=== PATIENT | female | born 1965 | race Caucasian/White ===

== ENCOUNTER 2023-11-26 16:37 | Outpatient (OUT) | payer OTHER, SELFPAY ==
--- NOTE | 2023-11-26 | MM_ITS ---
Patient Name: CLAUDIA SOMMERS MR#: [id number] : 1965 Exam Date: 11/26/2023 Ordering Doctor: DR JO CAPPS RADIOLOGY REPORT PROCEDURE: MM TOMOSYNTHESIS SCREENING BI COMPARISON: MG MAMM SCREEN 3D CARLOS CAD, 11/22/2022. MG MAMM SCREEN 3D CARLOS CAD, 11/21/2021. INDICATIONS: Screening for malignant neoplasm Calculator Name NCI Breast Cancer Risk Assessment Tool 5 Year Breast Cancer Risk 1.50% Lifetime Breast Cancer Risk 8.30% Personal Breast Cancer No Personal Ovarian Cancer No Treatments None Family Cancers Grandmother-maternal with colon cancer at age 67. LOCATION: The [facility] BREAST COMPOSITION: Heterogeneously dense,which may obscure small masses. FINDINGS: DIAGNOSTIC CATEGORY 1--NEGATIVE. NO CHANGE FROM COMPARISON ASSESSMENT. Scattered benign-appearing calcifications are present. Scattered benign-appearing lymph nodes are present. RIGHT BREAST: No significant suspicious finding. LEFT BREAST: No significant suspicious finding. Area of focal asymmetry upper inner quadrant, mid breast, stable RECOMMENDATIONS: ROUTINE MAMMOGRAM AND CLINICAL EVALUATION IN 12 MONTHS. PLEASE NOTE: A NORMAL MAMMOGRAM DOES NOT EXCLUDE THE POSSIBILITY OF BREAST CANCER. A CLINICALLY SUSPICIOUS PALPABLE LUMP SHOULD BE BIOPSIED. Dictated by: Best Angeles MD on 11/27/2023 at 09:23 Approved by: Best Angeles MD on 11/27/2023 at 09:25
== END 2023-11-26 16:38 | disposition home or self-care (01) ==
PROVIDERS: PCP Internal Medicine; Visit Provider Specialist
DX: Z12.31 Encounter for screening mammogram for malignant neoplasm of breast (principal); Z80.0 Family history of malignant neoplasm of digestive organs
CPT/HCPCS: 77063; 77067

== ENCOUNTER 2023-12-26 12:51 | Outpatient (OUT) | payer OTHER, SELFPAY ==
[2023-12-26 13:02] LABS: Hemoglobin 13.4 g/dL (12.0-16.0)
[2023-12-26] MEDS: ALBUTEROL SULFATE 2.5 MG/3 ML VIAL NEB IH (13:45)
--- NOTE | 2023-12-26 13:50 | RT_ITS ---
The [facility] Test Date: 2023-12-26 Pat Name: CLAUDIA SOMMERS Department: Room: - Gender: Female [employer]: Eliezer Ochoa RRT : 1965 Requested By: [id number] Order Number: [id number] Reading MD: Afshin Sheppard Interpretive Statements Pulmonary function testing was completed according to ATS criteria. Findings were considered accurate and reproducible. Both pre- and post-bronchodilator values utilized for spirometry. Spirometry (based on pre-bronchodilator values): -FEV1/FVC: Low normal @ 72% -FEV1: Low normal @ 80% -FVC: Normal @ 86% -NQM14-47%: Reduced @ 59% -There is a positive bronchodilator resposne in CSN44-80%, but diagnostic and clinical significance is unclear. Lung volumes by plethysmography (based on pre-bronchodilator values): -RV: Increased @ 139% -TLC: Normal @ 113% Diffusion capacity: -DLCO: Normal @ 93% when corrected for Hb 13.4g/dL Flow-volume loop: -Mild obstructive pattern Impressions: -Spirometry trends towards mild-moderate obstruction. An elevated RV suggests air trapping. The diffusion capacity is normal. Overall study suggests an underlying obstructive process, such as asthma. Clinical correlation required. Electronically Signed On 12-31-2023 12:37:40 EDT by Afshin Sheppard
== END 2023-12-26 12:52 | disposition home or self-care (01) ==
LOC: CARD 12:52
PROVIDERS: PCP Internal Medicine
DX: R05.3 Chronic cough (principal)
CPT/HCPCS: 36415; 85018; 94060; 94726; 94729

== ENCOUNTER 2024-11-26 16:38 | Outpatient (OUT) | payer BC, SELFPAY ==
--- NOTE | 2024-11-26 16:40 | MM_ITS ---
Patient Name: CLAUDIA SOMMERS MR#: [id number] : 1965 Exam Date: 11/26/2024 Ordering Doctor: Non-Staff Physician RADIOLOGY REPORT PROCEDURE: MM TOMOSYNTHESIS SCREENING BI COMPARISON: MM TOMOSYNTHESIS SCREENING BI, 11/26/2023. MG MAMM SCREEN 3D CARLOS CAD, 11/22/2022. MG MAMM SCREEN 3D CARLOS CAD, 11/21/2021. MG MAMM CARLOS SCRN W CAD DIG, 03/11/2013. INDICATIONS: Screening Calculator Name NCI Breast Cancer Risk Assessment Tool 5 Year Breast Cancer Risk 1.60% Lifetime Breast Cancer Risk 8.10% Personal Breast Cancer No Personal Ovarian Cancer No Treatments None Family Cancers Grandmother-maternal with colon cancer at age 67. LOCATION: [facility] BREAST COMPOSITION: There are scattered areas of fibroglandular density. FINDINGS: DIAGNOSTIC CATEGORY 1--NEGATIVE. LEFT BREAST: No significant suspicious finding. RIGHT BREAST: No significant suspicious finding. RECOMMENDATIONS: ROUTINE MAMMOGRAM AND CLINICAL EVALUATION IN 12 MONTHS. PLEASE NOTE: A NORMAL MAMMOGRAM DOES NOT EXCLUDE THE POSSIBILITY OF BREAST CANCER. A CLINICALLY SUSPICIOUS PALPABLE LUMP SHOULD BE BIOPSIED. Dictated by: Brando Pringle DO on 11/27/2024 at 15:38 Approved by: Brando Pringle DO on 11/27/2024 at 15:45
--- OUTSIDE RECORDS SUMMARY | 2024-11-26 16:58 | XMS_ITS | CCD ---
Author Organization [facility] Care Team Providers Care Ply Splicer Name Role Phone PHYSICIAN, DEFAULT Unavailable Unavailable PHYSICIAN, DEFAULT Unavailable Unavailable ARELY, ABDULAZIM Unavailable Unavailable ARELY, ABDULAZIM Unavailable Unavailable NOMI BARAHONA Unavailable Unavailable YON DICKINSON Unavailable Unavailable [place] Unavailable Unavailable ARELY, ABDULAZIM Unavailable Unavailable YENIFER TELLO Unavailable Unavailable [place] Unavailable Unavailable JEFRY, DR OSORIO Admitting Unavailable JEFRY, DR OSORIO Attending Unavailable DR NOMI BARAHONA Primary Care Unavailable WEST, DR VITA Obando Consulting Unavailable JEFRY, DR OSORIO Consulting Unavailable Pablo Nielsen Unavailable JACEY Barahona Primary Care Provider [phone] MD Radhames Brush Attending Provider [phone] Radhames Brush Attending Unavailable Radhames Brush Admitting Unavailable Nomi Barahona Primary Care Unavailable Nomi Barahona MD Primary Care Provider [phone] CAMPBELL STEPHENS Attending Unavailable RADHAMES BRUSH Referring Unavailable NOMI BARAHONA Attending Unavailable JO CAPPS Attending Unavailable Unavailable Primary Care Provider UnavailHARRIET Castaneda Attending Unavailable Allergies Allergy Classification Reported Allergen(s) Allergy Type Date of Onset Reaction(s) Facility (2 sources) nitrofurantoin; Translations: [MACROBID] Drug Allergy 12-17-19 18 [facility] (2 sources) penicillin; Translations: [PENICILLIN] Drug Allergy 12-17-19 18 [facility] (1 source) No Known Allergies; Translations: [No Known Allergies] Propensity to adverse reactions (disorder) [facility] (3 sources) NITROFURANTOIN, MACROCRYSTALS / Nitrofurantoin, Monohydrate Drug Allergy Unknown Zachary Prell Other (3 sources) penicillAMINE Drug Allergy Unknown Zachary Prell Other (6 sources) Nitrofurantoin; Translations: [nitrofurantoin] Drug Allergy 06-22-19 97 Unknown, Shortness of breath [facility] (6 sources) Penicillins; Translations: [Penicillins] Allergy to substance 09-15-19 69 Hives [facility] Medications Current Medications Medication Drug Class(es) Dates Sig (Normalized) Sig (Original) 8 hr acetaminophen 650 mg extended release oral tablet (1 source) Start: 10-13-2020 Acetaminophen (Tylenol 8 Hour) 650 mg Tablet Extended Release Active 1300 MG PO Q12H October 13, 2020 12:00am Ascorbic Acid (2 sources) Vitamin C Vitamin C Active Calcium Carbonate (2 sources) Tums Active clobetasol propionate 0.0005 mg/mg topical ointment (4 sources) Corticosteroid Start: 06-27-2022 clobetasol (Temovate) 0.05 % ointment APPLY TO AFFECTED AREAS IN GROIN AND TRUNK TWICE A DAY WHEN FLARED 06/27/2022 Active Fish Oil-Jasper-3 Fatty Acids (FISH OIL) 300-500 mg cap (1 source) Fish Oil-Jasper-3 Fatty Acids (FISH OIL) 300-500 mg cap Take by mouth. Active Fish Oils (2 sources) Fish Oil Active Multivitamin-[place] ls-Lutein (Multivitamin 50 Plus) Tablet (1 source) Start: 08-08-2018 Multivitamin-[place] als-Lutein (Multivitamin 50 Plus) Tablet Active 1 TAB PO Every morning August 08, 2018 12:00am [place] 0-Mfw-Jto-Fish Oil (Fish Oil) 1,000 mg (120 mg-180 mg) Capsule (1 source) Start: 08-08-2018 take 1 tablet by mouth once daily in the morning Jasper 2-Bwo-Ozm-Fish Oil (Fish Oil) 1,000 mg (120 mg-180 mg) Capsule Active 1 TAB PO Every morning August 08, 2018 12:00am Jasper-3 Fatty Acids (Fish Oil) 1200 MG capsule delayed-release (3 sources) Jasper-3 Fatty Acids (Fish Oil) 1200 MG capsule delayed-release Take by mouth. Active omeprazole 40 mg delayed release oral capsule (7 sources) Proton Pump Inhibitor Start: 08-08-2018 omeprazole (PriLOSEC) [address] capsule 07/22/2023 Active take 1 capsule by mo [facility] once daily for gastroesophageal reflux disease omeprazole (PRILOSEC) 40 mg capsule TAKE 1 CAPSULE BY MOUTH ONCE DAILY for gerd Active pantoprazole 40 mg delayed release oral tablet (1 source) Proton Pump Inhibitor Pantoprazole Sodium 40 MG TAKE 1 TABLET BY MOUTH EVERY DAY IN THE MORNING Oral twice daily for 30 days Active 24 hr propranolol hydrochloride 60 mg extended release oral capsule (12 sources) beta-Adrenergic Aziza Start: take 1 capsule by mouth once daily propranolol LA (Inderal LA) 60 MG 24 hr capsule Indications: Mitral valve prolapse Take 1 capsule (60 mg) by mouth Daily 100 capsule 3 07/27/2024 Active Start: 06-25-2023 End: 07-27-2024 propranolol LA (Inderal LA) 60 MG 24 hr capsule 60 mg 06/25/2023 07/27/2024 Discontinued (Reorder) Start: 08-08-2018 take 60 mg by mouth once daily in the morning Propranolol Active 60 MG PO Every morning August 08, 2018 12:00am End: 07-27-2024 take 1 tablet by mouth in the morning propranolol (Inderal) 60 MG tablet Take 60 mg by mouth in the morning. 07/27/2024 Discontinued (Other) take [facility] tablet by [facility] once daily Propranolol HCl 60 MG 1 tablet Orally Once a day Active Vitamin D (2 sources) Vitamin D Active Completed/Discontinued Medications Medication Drug Class(es) Dates Sig (Normalized) Sig (Original) acetaminophen 325 mg / HYDROcodone bitartrate 5 mg oral tablet (2 sources) Opioid Agonist Start: 10-14-2020 End: 11-07-2023 take 1 tablet by mouth every four to six hours Hydrocodone-Acetami nophen ([place]ague) 5-325 mg tablet Discontinued 1 - 2 TAB PO EVERY 4-6 HOURS 20 01October 14, 2020 November 07, 2023 8:12am Start: 07-07-2020 End: 10-13-2020 take 1 tablet by mouth every four to six hours Hydrocodone-Acetaminophen ([place]ague) 5-325 mg tablet Discontinued 1 - 2 TAB PO EVERY 4-6 HOURS 20 01July 07, 2020 October 13, 2020 9:17am doxycycline hyclate 100 mg oral tablet (1 source) Tetracycline-class Drug Start: 10-14-2020 End: 11-07-2023 take 100 mg by mouth twice daily Doxycycline Hyclate Discontinued 100 MG PO Twice daily 14 October 14, 2020 12:00am November 07, 2023 8:12am fluocinonide 0.0005 mg/mg topical ointment (1 source) Corticosteroid Start: 08-08-2018 End: 06-30-2020 Fluocinonide Discontinued 1 DOSE TOPICAL As Directed August 08, 2018 12:00am June 30, 2020 8:47am fluticasone propionate 0.05 mg/actuat metered dose nasal spray (1 source) Corticosteroid Start: 08-08-2018 End: 10-13-2020 Fluticasone Propionate Discontinued 1 dose pk INTRANASAL Daily August 08, 2018 12:00am October 13, 2020 9:16am loratadine 10 mg oral tablet (1 source) Start: 06-30-2020 End: 11-07-2023 take 1 tablet by mouth once daily in the morning Loratadine (Claritin) 10 mg Tablet Discontinued 10 MG PO Every morning June 29, 2020 11:00pm November 07, 2023 8:12am sulfamethoxazole 800 mg / trimethoprim 160 mg oral tablet (1 source) Dihydrofolate Reductase Inhibitor Antibacterial, Sulfonamide Antimicrobial Start: 07-07-2020 End: 10-13-2020 take 1 tablet by mouth twice daily Sulfamethoxazole -Trimethoprim (Bactrim Ds) 800-160 mg tablet Discontinued 1 TAB PO Twice daily 10 July 06, 2020 11:00pm October 13, 2020 9:17am Triamcinolone (12 sources) Corticosteroid Start: 02-14-2021 Kenalog -40 mg January, 20 mg Start: 08-31-2020 Kenalog -40 mg Aug, 40 mg Start: 11-17-2019 Kenalog -40 mg Oct, 40 mg Problems Problem Classification Problem Date Documented Date Episodic/Chronic Allergic reactions (1 source) Allergy status to penicillin; Translations: [ALLERGY STATUS TO PENICILLIN] Onset: 12-16-2017 Episodic Calculus of urinary tract (5 sources) Kidney stone; Translations: [Calculus of kidney] Onset: 11-24-2008 03-04-2023 Episodic Complications of surgical procedures or medical care (1 source) Non-healing surgical wound; Translations: [Other complications of procedures, not elsewhere classified, initial encounter] 09-04-2023 Episodic Diabetes mellitus without complication (5 sources) Impaired fasting glycemia; Translations: [Impaired fasting glucose] Onset: 11-24-2008 03-04-2023 Episodic Esophageal disorders (12 sources) Gastro-esophageal reflux disease without esophagitis; Translations: [Gastroesophageal reflux disease] Onset: 12-08-2008 Chronic Heart valve disorders (4 sources) Mitral valve prolapse; Translations: [Nonrheumatic mitral (valve) prolapse] Onset: 07-27-2024 07-27-2024 Chronic Menopausal disorders (1 source) Atrophy of vagina; Translations: [Postmenopausal atrophic vaginitis] 10-12-2024 Chronic Osteoarthritis (4 sources) Primary osteoarthritis, left hand; Translations: [PRIMARY OSTEOARTHRITIS, LEFT HAND] Onset: 12-16-2017 Chronic Other ear and sense organ disorders (3 sources) Infective otitis externa; Translations: [Infective otitis externa, unspecified] Chronic Other lower respiratory disease (1 source) Cough; Translations: [Cough] 09-04-2023 Episodic Other nervous system disorders (3 sources) Carpal tunnel syndrome of right wrist; Translations: [Carpal tunnel syndrome, right upper limb] Chronic Other nervous system disorders (3 sources) Carpal tunnel syndrome of left wrist; Translations: [Carpal tunnel syndrome, left upper limb] Chronic Other nervous system disorders (1 source) Pain in limb; Translations: [Other acute postprocedural pain] 09-04-2023 Episodic Other non-traumatic joint disorders (2 sources) Other specified joint disorders, left hand; Translations: [Osteophyte, left hand] Onset: 12-16-2017 Episodic Other nutritional; endocrine; and metabolic disorders (3 sources) Intestinal disaccharidase deficiency; Translations: [Lactose intolerance, unspecified] Onset: 11-24-2008 03-04-2023 Chronic Other screening for suspected conditions (not mental disorders or infectious disease) (7 sources) Encounter for screening mammogram for malignant neoplasm of breast; Translations: [Patient encounter status] Onset: 11-22-2022 Episodic Other upper respiratory disease (3 sources) Allergic rhinitis; Translations: [Allergic rhinitis, unspecified] Onset: 11-24-2008 03-04-2023 Chronic Residual codes; unclassified (1 source) Family history of malignant neoplasm of digestive organs; Translations: [RAFAEL FRANK NEOPLASM DIGESTIV ORGN] Onset: 11-26-2022 Episodic Unclassified (2 sources) Unknown / UNK(Unknown) Onset: 12-16-2017 Results Test Name Value Interpretation Reference Range Facility [facility] 10-12-2024 [facility]OV Office Visit ([facility] ) JULIETTE SOMMERSAN ([id number]) 1965 F Date Time Provider Department 10/12/24 12:30 PM HARRIET PAYTON [facility] During your visit today, we recorded the following information about you: Pulse Blood pressure Weight Height 62/minute 122/67 62.7 kg 1.6 m Last Period 06/23/13 Harriet Payton APRN.[facility] 10/12/2024 12:50 PM Signed Pito is a 59 year old who presents for an annual gynecologic exam with complaints, worsening lichen sclerosus . Using clobetasol nightly, all over vulva. Worried about blisters that have been around the last couple of months, itchy, not painful. No drainage. Postmenopausal: Yes since age 48 HRT use: No. Still get period: No Menopause symptoms: Vaginal dryness Number of lifetime partners: 1 control frequency: Never HPV vaccine: No; Last pap smear: 09/12/2023 History of abnormal pap: No, all prior PAP smears have been normal Colposcopy: No. Leep: No. Cone biopsy: No. Bothersome pelvic pain: Yes--pertains to vaginal dryness and lichen sclerosus. Last mammogram: 2022 normal, normally gets those at [facility]. History of abnormal mammogram: No Not sexually active OB History T2 L2 SAB0 IAB0 Ectopic0 Multiple0 Live Births2 Cloth Framer History LMP: 06/23/2013, Postmenopausal Age at Menarche: 9 Age at First : Age at Menopause: 48 Cloth Framer History Comments: Sexual Activity: Not Currently; No partner data on record Contraception: No contraception data on record PAST MEDICAL HISTORY Diagnosis Date Menopause ovarian failure Vaginal atrophy PAST SURGICAL HISTORY Procedure Laterality Date SECTION HX History reviewed. No pertinent family history.SOCIAL HISTORY Social History Tobacco Use Smoking status: Never Smokeless tobacco: Never REVIEW OF SYSTEMS Abdomen: No abdominal pain, nausea, vomiting, diarrhea, or constipation. Bladder: No dysuria, gross hematuria, urinary frequency, urinary urgency, or incontinence Breast: No breast lumps, nipple d/c, overlying skin changes, redness or skin retraction Allergies and current medication updated:Yes SENSITIVE EXAM: The sensitive examination was discussed with the Patient or Patient's Authorized Die Developer. As applicable, any other physician, advance practice provider, medical student, or other health professional student that will be observing or involved in the sensitive examination for educational or training purposes was discussed with the Patient or Authorized Die Developer. The Patient or Authorized Die Developer has agreed to proceed with the sensitive examination. (Sensitive examination includes inspection and/or palpation of the breasts, pelvis, prostate and anorectal regions). EXAM: BP 122/67 Pulse 62 Ht 5' 3 (1.60m) Wt 138 lb 3.7 oz (62.7kg) LMP 06/23/2013 BMI 24.49 kg/(m2). GENERAL: pleasant, female in no apparent distress HEENT: Normocephalic, atraumatic, mucus membranes moist, and no lesions NECK: Supple, full range of motion, no adenopathy, and thyroid normal DERMATOLOGY: Normal, without lesions, non-icteric, and non-hirsute BREAST: soft, non-tender, symmetric, no dominant mass, normal nipple-areolar complex, no lymphadenopathy, and no nipple discharge CHEST: Clear to auscultation, Normal inspiratory effort, and Regular rate and rhythm ABDOMEN: soft, non-tender, and no masses PELVIC: external genitalia normal, normal Bartholin's glands, urethra, Chandler's glands, no vulvar lesions, no cervical lesions, good vaginal support, physiologic discharge present, normal appearing perineal body and perianal region, a few sebaceous gland cysts--no erythema or drainage. BIMANUAL: uterus normal size, shape and consistency, no adnexal masses, non-tender, and no cervical motion tenderness NEURO: alert and oriented x3,exam grossly non-focal EXTREMITIES: normal ASSESSMENT/PLAN: 1) Health maintenance: Pap/HPV up to date. Mammogram ordered 2) Discussed trying warm compresses/soaks a few times a day for a week, see if sebaceous gland cysts either soften up and reabsorb or drain. Then to see dermatology for further guidance on both that and persistent lichen sclerosus symptoms despite daily clobetasol. 3) Follow up one year or sooner as needed Harriet Payton APRN.CNM Allergies As of Date: 10/12/2024 Noted Allergy Reaction NITROFURANTOIN 06/22/1997 12 - Shortness of Breath 16 - Unknown PENICILLINS 09/15/1969 4 - Hives Date Reviewed: 10/12/2024 Reviewed by: Marleny Melendez MA - Fully Assessed Reason for Visit: Well Woman [1463] Primary Visit Diagnosis:Women's annual routine gynecological examination [Z01.419] Other Visit Diagnoses:Encounter for screening breast examination [Z12.39] Vaginal atrophy [N95.2] Encounter for screening for malignant neoplasm of cervix [Z12.4] Order(s (more content not included)... Normal [facility] CBC (INCLUDES DIFF/PLT)on Basophils (Bld) [#/Vol] 0.067 10*3/uL Normal 0-200 [facility] Comment on above: Performed By: #### 6 399, 7600, [id number] #### [facility] [address], [address] [place] [address] Property Portfolio Officer: Rasheed Reina MD Basophils/100 WBC (Bld) 0.7 % Normal [facility] Comment on above: Performed By: #### 6 399, 7600, 39265 #### [facility] [address], [address] [place] [address] Property Portfolio Officer: Rasheed Reina MD Eosinophils (Bld) [#/Vol] 0.173 10*3/uL Normal 15-500 [facility] Comment on above: Performed By: #### 6 399, 7600, 28963 #### [facility] [address], [address] [place] [address] Property Portfolio Officer: Rasheed Reina MD Eosinophils/100 WBC (Bld) 1.8 % Normal [facility] Comment on above: Performed By: #### 6 399, 7600, 39639 #### [facility] [place] [address] Property Portfolio Officer: Rasheed Reina MD Erythrocyte distribution width (RBC) [Ratio] 12.3 % Normal 11.0-15.0 [facility] Comment on above: Performed By: #### 6 399, 7600, 17916 #### [facility] [place] [address] Property Portfolio Officer: Rasheed Reina MD Hematocrit (Bld) [Volume fraction] 41.1 % Normal 35.0-45.0 [facility] Comment on above: Performed By: #### 6 399, 7600, 44421 #### [facility] [place] [address] Property Portfolio Officer: Rasheed Reina MD Hemoglobin (Bld) [Mass/Vol] 13.1 g/dL Normal 11.7-15.5 [facility] Comment on above: Performed By: #### 6 399, 7600, 98544 #### [facility] [place] [address] Property Portfolio Officer: Rasheed Reina MD Lymphocytes (Bld) [#/Vol] 3.206 10*3/uL Normal 850-3900 [facility] Comment on above: Performed By: #### 6 399, 7600, 65516 #### [facility] [place] [address] Property Portfolio Officer: Rasheed Reina MD Lymphocytes/100 WBC (Bld) 33.4 % Normal [facility] Comment on above: Performed By: #### 6 399, 7600, 33155 #### [facility] [place] [address] Property Portfolio Officer: Rasheed Reina MD MCH (RBC) [Entitic mass] 28.7 pg Normal 27.0-33.0 [facility] Comment on above: Performed By: #### 6 399, 7600, 97999 #### [facility] [place] [address] Property Portfolio Officer: Rasheed Reina MD MCHC (RBC) [Mass/Vol] 31.9 g/dL Low 32.0-36.0 [facility] Comment on above: Result Comment: For adults, a slight decrease in the calculated MCHC value (in the range of 30 to 32 g/dL) is most likely not clinically significant; however, it should be interpreted with caution in correlation with other red cell parameters and the patient's clinical condition. Performed By: #### 6 399, 7600, 27062 #### [facility] [place] [address] Property Portfolio Officer: Rasheed Reina MD MCV (RBC) [Entitic vol] 89.9 fL Normal 80.0-100.0 [facility] Comment on above: Performed By: #### 6 399, 7600, 18057 #### [facility] [place] [address] Property Portfolio Officer: Rasheed Reina MD Monocytes (Bld) [#/Vol] 0.682 10*3/uL Normal 200-950 [facility] Comment on above: Performed By: #### 6 399, 7600, 71053 #### [facility] [place] [address] Property Portfolio Officer: Rasheed Reina MD Monocytes/100 WBC (Bld) 7.1 % Normal [facility] Comment on above: Performed By: #### 6 399, 7600, 00230 #### [facility] [place] [address] Property Portfolio Officer: Rasheed Reina MD Neutrophils (Bld) [#/Vol] 5.472 10*3/uL Normal 7626-4172 [facility] Comment on above: Performed By: #### 6 399, 7600, 41406 #### [facility] [place] [address] Property Portfolio Officer: Rasheed Reina MD Neutrophils/100 WBC (Bld) 57 % Normal [facility] Comment on above: Performed By: #### 6 399, 7600, 33298 #### [facility] [place] [address] Property Portfolio Officer: Rasheed Reina MD Platelet mean volume (Bld) [Entitic vol] 10.7 fL Normal 7.5-12.5 [facility] Comment on above: Performed By: #### 6 399, 7600, 09771 #### [facility] [place] [address] Property Portfolio Officer: Rasheed Reina MD Platelets (Bld) [#/Vol] 245 10*3/uL Normal 140-400 [facility] Comment on above: Performed By: #### 6 399, 7600, 63765 #### [facility] [place] [address] Property Portfolio Officer: Rasheed Reina MD RBC (Bld) [#/Vol] 4.57 10*6/uL Normal 3.80-5.10 [facility] Comment on above: Performed By: #### 6 399, 7600, 50578 #### [facility] [place] [address] Property Portfolio Officer: Rasheed Reina MD WBC (Bld) [#/Vol] 9.6 10*3/uL Normal 3.8-10.8 [facility] Comment on above: Performed By: #### 6 399, 7600, 84440 #### [facility] [place] [address] Property Portfolio Officer: Rasheed Reina MD [facility]ABOL[facility] 08-04-2024 Albumin [Mass/Vol] 4.5 g/dL Normal 3.6-5.1 [facility] Comment on above: Performed By: #### 6 399, 7600, 53691 #### [facility] [place] [address] Property Portfolio Officer: Rasheed Reina MD Albumin/Globulin [Mass ratio] 2.0 {ratio} Normal 1.0-2.5 [facility] Comment on above: Performed By: #### 6 399, 7600, 73007 #### [facility] of [address], [address] [place] [address] Property Portfolio Officer: Rasheed Reina MD ALP [Catalytic activity/Vol] 59 U/L Normal 37-153 [facility] Comment on above: Performed By: #### 6 399, 7600, 12826 #### [facility] of [address], [address] [place] [address] Property Portfolio Officer: Rasheed Reina MD ALT [Catalytic activity/Vol] 23 U/L Normal 6-29 [facility] Comment on above: Performed By: #### 6 399, 7600, 68050 #### [facility] [place] [address] Property Portfolio Officer: Rasheed Reina MD AST [Catalytic activity/Vol] 20 U/L Normal 10-35 [facility] Comment on above: Performed By: #### 6 399, 7600, 94631 #### [facility] [place] [address] Property Portfolio Officer: Rasheed Reina MD Bilirubin [Mass/Vol] 0.6 mg/dL Normal 0.2-1.2 [facility] Comment on above: Performed By: #### 6 399, 7600, 54811 #### [facility] [place] [address] Property Portfolio Officer: Rasheed Reina MD BUN/CREATININE RATIO SEE NOTE: Normal 6-22 [facility] Comment on above: Result Comment: Not Reported: BUN and Creatinine are within reference range. Performed By: #### 6 399, 7600, 77731 #### [facility] [place] [address] Property Portfolio Officer: Rasheed Reina MD Calcium [Mass/Vol] 9.5 mg/dL Normal 8.6-10.4 [facility] Comment on above: Performed By: #### 6 399, 7600, 61443 #### [facility] of [address], [address] [place] [address] Property Portfolio Officer: Rasheed Reina MD Chloride [Moles/Vol] 106 mmol/L Normal 98-110 [facility] Comment on above: Performed By: #### 6 399, 7600, 08270 #### [facility] of [address], [address] [place] [address] Property Portfolio Officer: Rasheed Reina MD CO2 [Moles/Vol] 26 mmol/L Normal 20-32 [facility] Comment on above: Performed By: #### 6 399, 7600, 32158 #### [facility] [place] [address] Property Portfolio Officer: Rasheed Reina MD Creatinine [Mass/Vol] 0.74 mg/dL Normal 0.50-1.05 [facility] Comment on above: Performed By: #### 6 399, 0, 03963 #### [facility] [place] [address] Property Portfolio Officer: Rasheed Reina MD GFR/1.73 sq M.predicted among non-blacks MDRD (S/P/Bld) [Vol rate/Area] 93 mL/min/{1.73_m2} Normal > OR = 60 [facility] Comment on above: Performed By: #### 6 399, 7600, 74123 #### [facility] [place] [address] Property Portfolio Officer: Rasheed Reina MD Globulin (S) [Mass/Vol] 2.3 g/dL Normal 1.9-3.7 [facility] Comment on above: Performed By: #### 6 399, 7600, 65042 #### [facility] [place] [address] Property Portfolio Officer: Rasheed Reina MD Glucose [Mass/Vol] 98 mg/dL Normal 65-99 [facility] Comment on above: Result Comment: Fasting reference interval Performed By: #### 6 399, 7600, 49834 #### [facility] of [address], [address] [place] [address] Property Portfolio Officer: Rasheed Reina MD Potassium [Moles/Vol] 4.4 mmol/L Normal 3.5-5.3 [facility] Comment on above: Performed By: #### 6 399, 7600, 21296 #### [facility] of [address], [address] [place] [address] Property Portfolio Officer: Rasheed Reina MD Protein [Mass/Vol] 6.8 g/dL Normal 6.1-8.1 [facility] Comment on above: Performed By: #### 6 399, 7600, 40668 #### [facility] of [address], [address] [place] [address] Property Portfolio Officer: Rasheed Riena MD Sodium [Moles/Vol] 140 mmol/L Normal 135-146 [facility] Comment on above: Performed By: #### 6 399, 7600, 45828 #### [facility] of [address], [address] [place] [address] Property Portfolio Officer: Rasheed Reina MD Urea nitrogen [Mass/Vol] 20 mg/dL Normal 7-25 [facility] Comment on above: Performed By: #### 6 399, 7600, 34885 #### [facility] [place] [address] Property Portfolio Officer: Rasheed Reina MD LIPID PANEL, [facility] 07-24 Cholesterol [Mass/Vol] 175 mg/dL Normal <200 [facility] Comment on above: Order Comment: FASTI NG:YES FASTING: YES Performed By: #### 6 [id number], 7600, [id number] #### [facility] of [address], [address] [place] [address] Property Portfolio Officer: Rasheed Reina MD Cholesterol in HDL [Mass/Vol] 64 mg/dL Normal > OR = 50 [facility] Comment on above: Order Comment: FASTI NG:YES FASTING: YES Performed By: #### 6 399, 7600, [id number] #### [facility] of [place] [address] [address] Property Portfolio Officer: Rasheed Reina MD Cholesterol in LDL [Mass/Vol] 95 mg/dL Normal [facility] Comment on above: Order Comment: FASTI NG:YES FASTING: YES Result Comment: Refe rence range: <100 Desirable range <100 mg/dL for primary prevention; <70 mg/dL for patients with CHD or diabetic patients with > or = 2 CHD risk factors. LDL-C is now calculated using the Nicole calculation, which is a validated novel method providing better accuracy than the Friedewald equation in the estimation of LDL-C. Santana SEE et al. ЮЛИЯ. 2013;310(19): 1773-1437 (http://education.Brain in Hand.Baike.com/faq/MQR127) Performed By: #### 6 399, 7600, [id number] #### [facility] [address] [address] Property Portfolio Officer: Rasheed Reina MD Cholesterol.total/C holesterol in HDL [Mass ratio] 2.7 {ratio} Normal <5.0 [facility] Comment on above: Order Comment: FASTI NG:YES FASTING: YES Performed By: #### 6 399, 7600, 16255 #### [facility] [address] [address] Property Portfolio Officer: Rasheed Reina MD NON HDL CHOLESTEROL 111 mg/dL (calc) Normal <130 [facility] Comment on above: Order Comment: FASTI NG:YES FASTING: YES Result Comment: For patients with diabetes plus 1 major ASCVD risk factor, treating to a non-HDL-C goal of <100 mg/dL (LDL-C of <70 mg/dL) is considered a therapeutic option. Performed By: #### 6 399, 7600, 06000 #### [facility] [address] [address] Property Portfolio Officer: Rasheed Reina MD Triglyceride [Mass/Vol] 72 mg/dL Normal <150 [facility] Comment on above: Order Comment: FASTI NG:YES FASTING: YES Performed By: #### 6 399, 7600, 85543 #### [facility] [address], [address] [place] [address] Property Portfolio Officer: Rasheed Reina MD MG MAMM SCREEN 3D CARLOS CADon 11-22-2022 MG MAMM SCREEN 3D CARLOS CAD Patient: PITO SOMMERS. Exam Date: 11/22/2022 : 1965 Gender:F Ordering : DR JO CAPPS Admission #: [id number] Family : Order #: [id number] CLICK HERE TO VIEW EXAM RADIOLOGY REPORT PROCEDURE: MAMMOGRAM SCREENING 3D BILATERAL CAD COMPARISON: MG MAMM SCREEN CARLOS W CAD, 08/19/2020. MG MAMM SCREEN 3D CARLOS CAD, 11/21/2021. INDICATIONS: Screening mammography Calculator Name NCI Breast Cancer Risk Assessment Tool 5 Year Breast Cancer Risk 1.50% Lifetime Breast Cancer Risk 8.50% Personal Breast Cancer No Personal Ovarian Cancer No Treatments None Family Cancers Grandmother-maternal with colon cancer at age 67. LOCATION: [facility] BREAST COMPOSITION: Heterogeneously dense,which may obscure small masses. FINDINGS: DIAGNOSTIC CATEGORY 1--NEGATIVE. NO CHANGE FROM COMPARISON ASSESSMENT. Scattered benign-appearing calcifications are present. Scattered benign-appearing lymph nodes are present. RIGHT BREAST: No significant suspicious finding. LEFT BREAST: No significant suspicious finding. RECOMMENDATIONS: ROUTINE MAMMOGRAM AND CLINICAL EVALUATION IN 12 MONTHS. PLEASE NOTE: A NORMAL MAMMOGRAM DOES NOT EXCLUDE THE POSSIBILITY OF BREAST CANCER. A CLINICALLY SUSPICIOUS PALPABLE LUMP SHOULD BE BIOPSIED. Dictated by: Vita Angeles MD on 11/23/2022 at 12:36 Approved by: Vita Angeles MD on 11/23/2022 at 12:39 Normal [facility] Operative Reporton 8 Operative Report MR#: [id number] [facility] Pt. Name: Pito Sommers Room #: 9D Discharge Date: Birthdate: 1965 OPERATIVE REPORTDATE OF SURGERY: 12/16/2017SURGEON: Javon Astudillo M.D.FOOD SERVICE COORDINATOR: Dr. 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 Therefore, after x-rayshowed an underlying osteophyte, decision was made for excision.DESCRIPTION OF PROCEDURE: The patient was met in preop holding area. Theentire procedure was discussed including all risks, benefits, and potentialcomplication s. The patient agreed to the procedure, signed informedconsent. The patient's operative site was marked. She was met byAnesthesia, brought back to the operating room. MAC anesthesia was induced.Local anesthetic was administered in a digital nerve block to the leftthumb. A time-out was performed indicating correct operative site andprocedure. Antibiotics were given. The left upper extremity prepped anddraped in normal sterile fashion. We then applied a tourniquet out to thebase of the left thumb. We made an incision in a Sona style zigzag overthe dorsal DIP joint, elevated a full-thickness skin flap excised our cystthat was immediately subcutaneous and went directly down to the DIP joint.We then made an incision along the radial aspect of the extensor tendon,leaving the distal insertion intact. We got down to our DIP joint andprotected the cartilage while excising the entirety of the osteophyte fromthe distal phalanx right at that DIP joint. We then copiously irrigated thewound. Repaired the extensor tendon that we had released radially. We thenclosed the skin with 3-0 Novafil suture, applied our sterile dressings,took off the tourniquet, the patient was awoken from anesthesia andtransferred to the PACU in stable condition.The patient will be weightbearing as tolerated on left upper extremity. Shewill keep her dressings clean, dry, and intact for 3 days at which time shecan change them to dry dressings daily. She is to follow up with in clinic in 2 weeks. She will be given Montague for pain control andColace for constipation.Janina galeana Signed by:Javon Astudillo M.D. 12/17/2017 12:35 P Deo Astudillo M.D. I was present for the entire procedure. Date Dict: 12/16/2017/05:20 Shakir/Arnulfo Wiley M.D.Date Trans: 12/17/2017 12:12 John/ColetteN_JN:[id number]: Nomi Barahona M.D. [address] [facility] [address] Yon Dickinson, DO [address] [facility] [address] [facility] [address] Normal [facility] POC GLUCOSE LABon 12-16-2017 Glucose mass conc 85 mg/dL Normal 70-100 [facility] Comment on above: Performed By: #### 8 [id number] ####[facility] [place] [address], [facility] Vital Signs Date Time Vital Sign Value Performing Clinician Facility 10-12-2024 12:21-0500 Body height 160 cm Harriet Tata NUT TAPPER.CNM Work Phone: [facility] 10-12-2024 12:21-0500 Body mass index (BMI) [Ratio] 24.49 kg/m2 Harriet Tata NUT TAPPER.CNM Work Phone: [facility] 10-12-2024 12:21-0500 Body weight 62.7 kg Harriet Tata NUT TAPPER.CNM Work Phone: [facility] 10-12-2024 12:21-0500 Diastolic blood pressure 67 mm[Hg] Harriet Tata NUT TAPPER.CNM Work Phone: [facility] 10-12-2024 12:21-0500 Heart rate 62 /min Harriet Tata NUT TAPPER.CNM Work Phone: [facility] 10-12-2024 12:21-0500 Systolic blood pressure 122 mm[Hg] Harriet Tata NUT TAPPER.CNM Work Phone: [facility] 07-27-2024 16:50-0500 Body mass index (BMI) [Ratio] 23.17 kg/m2 Nomi Barahona MD Work Phone: [facility] 07-27-2024 16:50-0500 Body weight 61.24 kg Nomi Barahona MD Work Phone: [facility] 07-27-2024 16:50-0500 Diastolic blood pressure 78 mm[Hg] Nomi Barahona MD Work Phone: [facility] 07-27-2024 16:50-0500 Heart rate 58 /min Nomi Barahona MD Work Phone: [facility] 07-27-2024 16:50-0500 SaO2% (BldA) [Mass fraction] 98 % Nomi Barahona MD Work Phone: [facility] 07-27-2024 16:50-0500 Systolic blood pressure 118 mm[Hg] Nomi Barahona MD Work Phone: [facility] 11-07-2023 09:30-0500 Diastolic blood pressure 66 mm[Hg] II Nomi Barahona Work Phone: [facility] 11-07-2023 09:30-0500 Heart rate 56 /min II Nomi Barahona Work Phone: [facility] 11-07-2023 09:30-0500 Respiratory rate 18 /min II Nomi Barahona Work Phone: [facility] 11-07-2023 09:30-0500 SaO2% (BldA) [Mass fraction] 98 % II Nomi Barahona Work Phone: [facility] 11-07-2023 09:30-0500 Systolic blood pressure 106 mm[Hg] II Nomi Barahona Work Phone: [facility] 11-07-2023 08:14-0500 Body height 160.02 cm II Nomi Barahona Work Phone: [facility] 11-07-2023 08:14-0500 Body temperature 97.9 [degF] II Nomi Barahona Work Phone: [facility] 11-07-2023 08:14-0500 Body weight 58.96 kg II Nomi Barahona Work Phone: [facility] 10-01-2023 15:40-0500 Body height 161.16 cm Pablo Scovanner Other [facility] 10-01-2023 15:40-0500 Body mass index (BMI) [Ratio] 22.7 kg/m2 Pablo Scovanner Other [facility] Other 10-01-2023 15:40-0500 Body weight 58.97 kg Pablo Scovanner Other [facility] Other 10-01-2023 15:40-0500 Body weight 58.96 kg JACEY Nomi Barahona Work Phone: [facility] 07-23-2023 15:00-0400 Body height 161.16 cm Pablo Scovanner Other [facility] Other 07-23-2023 15:00-0400 Body mass index (BMI) [Ratio] 22.7 kg/m2 Pablo Scovanner Other [facility] Other 07-23-2023 15:00-0400 Body weight 58.97 kg Pablo Scovanner Other [facility] Other 07-23-2023 15:00-0400 Diastolic blood pressure 68 mm[Hg] Pablo Scovanner Other [facility] Other 07-23-2023 15:00-0400 Systolic blood pressure 113 mm[Hg] Pablo Scovanner Other [facility] Other 2023 13:30-0400 Body height 161.16 cm Pablo Scovanner Other [facility] Other 2023 13:30-0400 Body mass index (BMI) [Ratio] 24.97 kg/m2 Pablo Nielsen Other [facility] Other 2023 13:30-0400 Body weight 64.86 kg Pablo Nielsen Other [facility] Other 2023 13:30-0400 Diastolic blood pressure 78 mm[Hg] Pablo Nielsen Other [facility] Other 2023 13:30-0400 Systolic blood pressure 127 mm[Hg] Pablo Nielsen Other [facility] Other Encounters Encounter Date Encounter Type Care Provider Facility Start: 10-12-2024 End: 10-12-2024 ambulatory HARRIET TATA Facility:[facility] Start: 10-12-2024 End: 10-12-2024 Patient encounter procedure Harriet Payton NUT TAPPER.CNM Work Phone: OB/Gynecology Comment on above: Women's annual routi ne gynecological examination (Primary Dx); Encounter for screening breast examination; Vaginal atrophy; Encounter for screening for malignant neoplasm of cervix Start: 07-27-2024 End: 07-27-2024 Office outpatient visit 15 minutes Nomi Barahona MD Work Phone: [facility] Comment on above: Mitral valve prolaps e (Primary Dx); Gastroesophageal reflux disease without esophagitis; Impaired fasting glucose; Calculus of kidney Start: 07-27-2024 End: 07-27-2024 ambulatory NOMI BARAHONA Not Available Start: 07-03-2024 End: 07-03-2024 Telephone encounter Jo Capps MD Work Phone: [facility] Start: 12-17-2023 End: 12-17-2023 ambulatory CAMPBELL STEPHENS Not Available Start: 11-07-2023 End: 11-07-2023 ambulatory Radhames Brush Facility:[facility] Start: 11-07-2023 Non-patient / Non-visit II José Antonio Barahona Work Phone: [facility] Work Phone: Start: 11-07-2023 End: 11-07-2023 Admission to same day surgery center II Nomi Barahona Work Phone: [facility] Work Phone: Start: 11-07-2023 End: 11-07-2023 ambulatory II Nomi Barahona Work Phone: [facility] Work Phone: Start: 10-01-2023 End: 10-01-2023 ambulatory Pablo Nielsen Other [facility] Other Start: 10-01-2023 Office outpatient vi sit 15 minutes Pablo Nilesen [facility] Start: 10-01-2023 End: 10-01-2023 Patient encounter procedure II Nomi Barahona Work Phone: [facility] Work Phone: Start: 09-12-2023 End: 09-12-2023 ambulatory JO CAPPS Not Available Start: 07-23-2023 End: 07-23-2023 ambulatory Pablo Nielsen Other [facility] Other Start: 07-23-2023 Office outpatient vi sit 15 minutes Pablo Nielsen [facility] Start: 2023 End: 2023 ambulatory Pablo Nielsen Other [facility] Other Start: 2023 Office outpatient ne w 30 minutes Pablo Nielsen [facility] Start: 11-22-2022 End: 11-23-[address] JO CAPPS Facility: Start: 12-16-2017 End: 12-17-2017 Ambulatory TRINIDAD ASTUDILLO Facility:[facility] Start: 11-11-2017 End: 11-12-2017 Ambulatory DEFAULT PHYSICIAN Facility:[facility] Procedures Date Procedure Procedure Detail Performing Clinician Start: 11-27-2023 Mammography Jo edgar MD Work Phone: Start: 11-07-2023 Esophagogastroduodenoscopy II Nomi Barahona Work Phone: Start: 08-18-2018 Colonoscopy Jo edgar MD Work Phone: Start: 12-16-2017 ANESTH LOWER ARM SURGERY YENIFER TELLO Start: 12-16-2017 REMOVE TENDON SHEATH LESION ABDULAZIM ARELY Plan of Treatment Date Care Activity Detail Author Start: 2039 RSV Vaccine (1 - 1-d ose 75+ series) RSV Vaccine (1 - 1-dose 75+ series) [facility] Start: 08-18-2028 Screening for malign ant neoplasm of colon [facility] Start: 11-26-2024 Screening for malign ant neoplasm of breast Mammogram [facility] Start: 07-27-2024 End: 07-27-2025 Comprehensive metabolic 2000 panel - Serum or Plasma Comprehensive metabolic panel Lab Routine Mitral valve prolapse Impaired fasting glucose Expected: 07/27/2024 (Approximate), Expires: 07/27/2025 [facility] Comment on above: Expected: 07/27/2024 (Approximate), Expires: 07/27/2025 Start: 07-27-2024 End: 07-27-2025 Lipid 1996 panel - Serum or Plasma Lipid panel Lab Routine Mitral valve prolapse Gastroesophageal reflux disease without esophagitis Impaired fasting glucose Expected: 07/27/2024 (Approximate), Expires: 07/27/2025 [facility] Comment on above: Expected: 07/27/2024 (Approximate), Expires: 07/27/2025 Start: 05-24-2024 Covid-19 Vaccine ( season) Covid-19 Vaccine () [facility] Start: 05-24-2024 Influenza vaccination Influenza Vacc ine (#1) [facility] Start: 11-23-2023 Screening for malign ant neoplasm of breast Mammogram Screening [facility] Start: 11-07-2023 [facility] Start: 08-18-2019 Screening for malign ant neoplasm of colon [facility] Start: 2014 Pneumococcal Vaccine : 50+ (1 of 1 - PCV) Pneumococcal Vaccine: 50+ (1 of 1 - PCV) [facility] Start: 2014 Shingrix Vaccine (1 of 2) Shingrix Vaccine (1 of 2) [facility] Start: 2009 Diabetes Screening Diabetes Screenin g [facility] Start: 2009 [facility] Start: 2009 Screening for malign ant neoplasm of colon [facility] Start: 1994 Screening for malign ant neoplasm of cervix [facility] Start: 1985 Screening for malign ant neoplasm of cervix [facility] Start: 1983 Urine microalbumin profile DTaP,Tdap,Td Vaccine (1 - Tdap) [facility] Start: 1982 Anxiety Screening Anxiety Screening [facility] Start: 1982 Depression Screening Depression Scre ening [facility] Start: 1982 Hepatitis C screening Hepatitis C Sc reening [facility] Start: 1982 HIV screening HIV Screening [facility] Start: 1965 Screening for malign ant neoplasm of colon [facility] CBC W Auto Different ial panel - Blood CBC and differential Lab Routine Gastroesophageal reflux disease without esophagitis Impaired fasting glucose Ordered: 07/27/2024 [facility] Work Phone: Comment on above: Ordered: 07/27/2024 End: 11-11-2025 MG Breast Screening TARAN SCREENING Radiology Routine Women's annual routine gynecological examination Encounter for screening breast examination 1 Occurrences starting 10/12/2024 until 11/11/2025 [facility] Work Phone: Comment on above: 1 Occurrences starti ng 10/12/2024 until 11/11/2025 Immunizations Immunization Date Immunization Notes Care Provider Fa ariel 07-06-2023 influenza virus vacc ine, unspecified formulation Jo Capps MD Work Phone: [facility] Payers Date Payer Category Payer Unknown 2024 Unknown [id number] 2023 Self-pay [id number] 2021 Managed Care HMO (unspecified) [id number] 1965 Unknown [id number] 3 1965 Unknown [id number] 1965 Unknown [id number] 59 1965 Unknown [id number] 59 1959 Private Health Insurance [id number] Private Health Insurance [id number] Private Health Insurance [facility] [id number] Unknown Yuliet KING/DENNIS [id number] Unknown [id number] 1 Social History Date Type Detail Facility Start: 09-12-2023 End: 10-12-2024 Sex Assigned At [facility] Start: 11-07-2023 End: 10-12-2024 Tobacco smoking status NHIS Never smoked tobacco (finding) [facility] Start: 1965 Sex Assigned At Female [facility] Start: 09-12-2023 End: 10-12-2024 Tobacco use and exposure Smokeless tobacco non-user [facility] Start: 12-17-2023 End: 07-27-2024 Alcoholic beverage intake [facility]-drinker (finding) [facility] Start: 12-17-2023 End: 10-12-2024 [facility] How often to you hav e a drink containing alcohol? Monthly or less [facility] How many standard dr inks containing alcohol do you have on a typical day? 1 or 2 [facility] How often do you hav e 6 or more drinks on 1 occasion? Never [facility] Start: 12-17-2023 Alcohol Comment Social only, weekends only [facility] Start: 1965 Sex assigned at Not on file [facility] How often do you nee d to have someone help you when you read instructions, pamphlets, or other written material from your doctor or pharmacy [SILS] Never [facility] Do you belong to any clubs or organizations such as mu-ism groups, unions, fraternal or athletic groups, or school groups? No [facility] Are you now , , , , never or living with a partner? [facility] How often to you hav e a drink containing alcohol? 2-4 times a month [facility] How hard is it for y ou to pay for the very basics like food, housing, medical care, and heating Not very hard [facility] Do you feel stress - tense, restless, nervous, or anxious, or unable to sleep at night because your mind is troubled all the time - these days [OSQ] Not at all [facility] (I/We) worried wheth er (my/our) food would run out before (I/we) got money to buy more. Never true [facility] Goals Date Patient Goal Desired Activity /State Clinical Notes 10-14-2020 to 10-12-2024 Harriet Payton APRN.CNM - 10/12/2024 12:24 PM Nina Barahona MD - 07/27/2024 4:45 PM ESTTelephone Encounter - [facility] - 07/03/2024 10:45 AM EDT Note Date & Type Note Facility 10-12-2024 Note HNO ID: [id number] Author: HARRIET PAYTON APRN.CNM Service: ? Author Type: Top And Seat Cover Fitter Type: Progress Notes Filed: 10/12/2024 12:50 Note Text: Pito is a 59 year old who presents for an annual gynecologic exam with complaints, worsening lichen sclerosus . Using clobetasol nightly, all over vulva. Worried about blisters that have been around the last couple of months, itchy, not painful. No drainage. Postmenopausal: Yes since age 48 HRT use: No. Still get period: No Menopause symptoms: Vaginal dryness Number of lifetime partners: 1 control frequency: Never HPV vaccine: No; Last pap smear: 09/12/2023 History of abnormal pap: No, all prior PAP smears have been normal Colposcopy: No. Leep: No. Cone biopsy: No. Bothersome pelvic pain: Yes--pertains to vaginal dryness and lichen sclerosus. Last mammogram: 2022 normal, normally gets those at [facility]. History of abnormal mammogram: No Not sexually active OB History T2 L2 SAB0 IAB0 Ectopic0 Multiple0 Live Births2 Cloth Framer History LMP: 06/23/2013, Postmenopausal Age at Menarche: 9 Age at First : Age at Menopause: 48 Cloth Framer History Comments: Sexual Activity: Not Currently; No partner data on record Contraception: No contraception data on record PAST MEDICAL HISTORY Diagnosis Date Menopause ovarian failure Vaginal atrophy PAST SURGICAL HISTORY Procedure Laterality Date SECTION HX History reviewed. No pertinent family history.SOCIAL HISTORY Social History Tobacco Use Smoking status: Never Smokeless tobacco: Never REVIEW OF SYSTEMS Abdomen: No abdominal pain, nausea, vomiting, diarrhea, or constipation. Bladder: No dysuria, gross hematuria, urinary frequency, urinary urgency, or incontinence Breast: No breast lumps, nipple d/c, overlying skin changes, redness or skin retraction Allergies and current medication updated:Yes SENSITIVE EXAM: The sensitive examination was discussed with the Patient or Patient's Authorized Die Developer. As applicable, any other physician, advance practice provider, medical student, or other health professional student that will be observing or involved in the sensitive examination for educational or training purposes was discussed with the Patient or Authorized Die Developer. The Patient or Authorized Die Developer has agreed to proceed with the sensitive examination. (Sensitive examination includes inspection and/or palpation of the breasts, pelvis, prostate and anorectal regions). EXAM: BP 122/67 Pulse 62 Ht 5' 3 (1.60m) Wt 138 lb 3.7 oz (62.7kg) LMP 06/23/2013 BMI 24.49 kg/(m2). GENERAL: pleasant, female in no apparent distress HEENT: Normocephalic, atraumatic, mucus membranes moist, and no lesions NECK: Supple, full range of motion, no adenopathy, and thyroid normal DERMATOLOGY: Normal, without lesions, non-icteric, and non-hirsute BREAST: soft, non-tender, symmetric, no dominant mass, normal nipple-areolar complex, no lymphadenopathy, and no nipple discharge CHEST: Clear to auscultation, Normal inspiratory effort, and Regular rate and rhythm ABDOMEN: soft, non-tender, and no masses PELVIC: external genitalia normal, normal Bartholin's glands, urethra, Chandler's glands, no vulvar lesions, no cervical lesions, good vaginal support, physiologic discharge present, normal appearing perineal body and perianal region, a few sebaceous gland cysts--no erythema or drainage. BIMANUAL: uterus normal size, shape and consistency, no adnexal masses, non-tender, and no cervical motion tenderness NEURO: alert and oriented x3,exam grossly non-focal EXTREMITIES: normal ASSESSMENT/PLAN: 1) Health maintenance: Pap/HPV up to date. Mammogram ordered 2) Discussed trying warm compresses/soaks a few times a day for a week, see if sebaceous gland cysts either soften up and reabsorb or drain. Then to see dermatology for further guidance on both that and persistent lichen sclerosus symptoms despite daily clobetasol. 3) Follow up one year or sooner as needed Harriet Payton APRN.[facility] 10-12-2024 History of Presen t illness Narrative Pito is a 59 year old who presents for an annual gynecologic exam with complaints, worsening lichen sclerosus . Using clobetasol nightly, all over vulva. Worried about blisters that have been around the last couple of months, itchy, not painful. No drainage. Postmenopausal: Yes since age 48 HRT use: No. Still get period: No Menopause symptoms: Vaginal dryness Number of lifetime partners: 1 control frequency: Never HPV vaccine: No; Last pap smear: 09/12/2023 History of abnormal pap: No, all prior PAP smears have been normal Colposcopy: No. Leep: No. Cone biopsy: No. Bothersome pelvic pain: Yes--pertains to vaginal dryness and lichen sclerosus. Last mammogram: 2022 normal, normally gets those at [facility]. History of abnormal mammogram: No Not sexually active OB History T2 L2 SAB0 IAB0 Ectopic0 Multiple0 Live Births2 Cloth Framer History LMP: 06/23/2013, Postmenopausal Age at Menarche: 9 Age at First : Age at Menopause: 48 Cloth Framer History Comments: Sexual Activity: Not Currently; No partner data on record Contraception: No contraception data on record PAST MEDICAL HISTORY Diagnosis Date Menopause ovarian failure Vaginal atrophy PAST SURGICAL HISTORY Procedure Laterality Date SECTION HX History reviewed. No pertinent family history.SOCIAL HISTORY Social History Tobacco Use Smoking status: Never Smokeless tobacco: Never REVIEW OF SYSTEMS Abdomen: No abdominal pain, nausea, vomiting, diarrhea, or constipation. Bladder: No dysuria, gross hematuria, urinary frequency, urinary urgency, or incontinence Breast: No breast lumps, nipple d/c, overlying skin changes, redness or skin retraction Allergies and current medication updated:Yes SENSITIVE EXAM: The sensitive examination was discussed with the Patient or Patient's Authorized Die Developer. As applicable, any other physician, advance practice provider, medical student, or other health professional student that will be observing or involved in the sensitive examination for educational or training purposes was discussed with the Patient or Authorized Die Developer. The Patient or Authorized Die Developer has agreed to proceed with the sensitive examination. (Sensitive examination includes inspection and/or palpation of the breasts, pelvis, prostate and anorectal regions). EXAM: BP 122/67 Pulse 62 Ht 5' 3 (1.60m) Wt 138 lb 3.7 oz (62.7kg) LMP 06/23/2013 BMI 24.49 kg/(m^2). GENERAL: pleasant, female in no apparent distress HEENT: Normocephalic, atraumatic, mucus membranes moist, and no lesions NECK: Supple, full range of motion, no adenopathy, and thyroid normal DERMATOLOGY: Normal, without lesions, non-icteric, and non-hirsute BREAST: soft, non-tender, symmetric, no dominant mass, normal nipple-areolar complex, no lymphadenopathy, and no nipple discharge CHEST: Clear to auscultation, Normal inspiratory effort, and Regular rate and rhythm ABDOMEN: soft, non-tender, and no masses PELVIC: external genitalia normal, normal Bartholin's glands, urethra, Chandler's glands, no vulvar lesions, no cervical lesions, good vaginal support, physiologic discharge present, normal appearing perineal body and perianal region, a few sebaceous gland cysts--no erythema or drainage. BIMANUAL: uterus normal size, shape and consistency, no adnexal masses, non-tender, and no cervical motion tenderness NEURO: alert and oriented x3,exam grossly non-focal EXTREMITIES: normal ASSESSMENT/PLAN: 1) Health maintenance: Pap/HPV up to date. Mammogram ordered 2) Discussed trying warm compresses/soaks a few times a day for a week, see if sebaceous gland cysts either soften up and reabsorb or drain. Then to see dermatology for further guidance on both that and persistent lichen sclerosus symptoms despite daily clobetasol. 3) Follow up one year or sooner as needed Harriet Payton APRN.CNM documented in this encounter [facility] 07-27-2024 History of Presen t illness Narrative Images from the original note were not included. Subjective Patient ID: Pito Sommers is a 59 y.o. female who presents for GERD. Pt is here for follow up on her medications , also poss needs labs done Pt states she does see a GI doctor does not know his name GERD She complains of belching, chest pain, dysphagia, heartburn, nausea and a sore throat. She reports no abdominal pain, no coughing or no wheezing. This is a chronic problem. The current episode started more than 1 year ago. The problem occurs frequently. The problem has been gradually worsening. The heartburn duration is more than one hour. The heartburn is located in the substernum. The heartburn is of moderate intensity. The heartburn wakes her from sleep. The symptoms are aggravated by lying down and certain foods. Pertinent negatives include no fatigue. She has tried head elevation, a PPI and an antacid for the symptoms. Past procedures include an EGD. Current Outpatient Medications on File Prior to Visit Medication Sig Dispense Refill clobetasol (Temovate) 0.05 % ointment APPLY TO AFFECTED AREAS IN GROIN AND TRUNK TWICE A DAY WHEN FLARED Jasper-3 Fatty Acids (Fish Oil) 1200 MG capsule delayed-release Take by mouth. omeprazole (PriLOSEC) [address] capsule propranolol (Inderal) 60 MG tablet Take 60 mg by mouth in the morning. propranolol LA (Inderal LA) 60 MG 24 hr capsule 60 mg No current facility-administered medications on file prior to visit. I have reviewed and reconciled the history and medication list with the patient today. Allergies Allergen Reactions Nitrofurantoin Unknown and Shortness of breath Penicillins Hives Social History Tobacco Use Smoking status: Never Smokeless tobacco: Never Vaping Use Vaping status: Never Used Substance Use Topics Alcohol use: Not Currently Alcohol/week: 1.0 standard drink of alcohol Types: 1 Cans of beer per week Comment: Social only, weekends only Drug use: Never Family History Problem Relation Name Age of Onset Diabetes Mother Leah Macias Hypertension Mother Leah Macias Rashes / Skin problems Father Refugio Macias Past Medical History: Diagnosis Date GERD (gastroesophageal reflux disease) Past Surgical History: Procedure Laterality Date BRAIN SURGERY 11/12/1999 cyst removal SECTION, LOW TRANSVERSE 10/28/1992 SECTION, LOW TRANSVERSE 10/29/1995 Visit Vitals OB Status Postmenopausal Smoking Status Never Review of Systems Constitutional: Negative for chills, fatigue and fever. HENT: Positive for sore throat. Respiratory: Negative for cough, shortness of breath and wheezing. Cardiovascular: Positive for chest pain. Negative for palpitations and leg swelling. Gastrointestinal: Positive for dysphagia, heartburn and nausea. Negative for abdominal pain, constipation, diarrhea and vomiting. Skin: Negative for rash. Objective Physical Exam Constitutional: General: She is not in acute distress. Appearance: Normal appearance. She is well-developed. HENT: Head: Normocephalic and atraumatic. Eyes: General: No scleral icterus. Conjunctiva/sclera: Conjunctivae normal. Cardiovascular: Rate and Rhythm: Normal rate and regular rhythm. Heart sounds: Normal heart sounds. No murmur heard. Pulmonary: Effort: Pulmonary effort is normal. No respiratory distress. Breath sounds: Normal breath sounds. No wheezing, rhonchi or rales. Skin: General: Skin is warm and dry. Neurological: General: No focal deficit present. Mental Status: She is alert and oriented to person, place, and time. Psychiatric: Mood and Affect: Mood normal. Behavior: Behavior normal. Assessment/Plan Diagnoses and all orders for this visit: Mitral valve prolapse - propranolol LA (Inderal LA) 60 MG 24 hr capsule; Take 1 capsule (60 mg) by mouth Daily - Comprehensive metabolic panel; Future - Lipid panel; Future Gastroesophageal reflux disease without esophagitis - CBC and differential - Lipid panel; Future Impaired fasting glucose - CBC and differential - Comprehensive metabolic panel; Future - Lipid panel; Future Calculus of kidney No follow-ups on file. documented in this encounter [facility] 07-03-2024 Telephone encounter Note Letter sent out on 07/03/24 to reschedule due to provider out of office. [facility] 07-03-2024 Miscellaneous Notes Letter sent out on 07/03/24 to reschedule due to provider out of office. documented in this encounter [facility] 11-07-2023 Procedure note [facility] 10-01-2023 Evaluation note Encounter Date Diagnosis Assessment Notes Sep, GERD (gastroeso phageal reflux disease) (ICD-10 - K21.9) patient reports a small improvement in cough. She has occasional abdominal burning. She is taking Omeprazole 40 mg bid. She should continue this. Proceed with EGD Zachary Prell Other 10-31-2023 Evaluation note* Encounter Date Diagnosis Assessment Notes Treatment Notes Treatment Clinical Notes Jun, GERD (gastroesophageal reflux disease) (ICD-10 - K21.9) The patient reports that she has not has much improvement with adding Famotidine 40 mg qd to the Pantoprazole. She had previously been on Omeprazole. She states she did not have much difference in her symtpoms between Omeprazole and Pantoprazole. The patient states she had previously taken a large amount of Aleve and feels that her symptoms all started with this. Her biggest complaint is that of cough. We will stop Pantoprazole and Famotidine. We will restart Omeprazole and increase this to twice a day. Return visit here in 8 weeks. Zachary Prell Other 06-26-2023 Evaluation note* Encounter Date Diagnosis Assessment Notes Treatment Notes Treatment Clinical Notes Feb, GERD (gastroesophageal reflux disease) (ICD-10 - K21.9) Patient reports that she was taken off of omeprazole and placed on pantoprazole 40 mg QD Patient is to increase pantoprazole from 40 mg once daily to pantoprazole 40 mg twice daily. Prescription sent to pharmacy today. Patient may use tums for break through GERD RTO 3 months Zachary Prell Other 01-22-2021 History general Narrative - Reported* Type Description Date Medical History atrial fib Medical History GERD Surgical History c-sections X2 Surgical History brain surgery Surgical History left carpal tunnel i ncision scar revision/incision/irrigation/debbridement with revision closure 10/14/20 Hospitalization History see above Zachary Prell Other Evaluation noteNo assessment information available [facility] Work Phone: Evaluation note* Diagnosis Mitral valve prolapse- Primary Mitral valve disorders Gastroesophageal reflux disease without esophagitis Esophageal reflux Impaired fasting glucose Calculus of kidney [facility] Diagnosis Women's annual routine gynecological examination- Primary Encounter for screening breast examination Vaginal atrophy Postmenopausal atrophic vaginitis Encounter for screening for malignant neoplasm of cervix Screening for malignant neoplasm of the cervix [facility] Radhames Brush [facility] November 07, 2023 8:51am Note Date/Time November 07, 2023 8:51am [facility] [address] [place] [address] Gastroenterology H&P Signed Patient: Pito Sommers MR#: [id number] : 1965 Acct:[id number] Age/Sex: 58 / F Adm Date: 4 Loc: Room: Type: [facility] Attending Dr: Radhames Brush MD Copies to: MD Nomi Naranjo II, MD~ Date of Service: 11/07/2023 HISTORY & PHYSICAL: Patient's history with special attention to the cardiovascular, pulmonary systems and the current problem was reviewed with the patient immediately prior to the procedure. Present medications and doses reviewed in the EMR. Allergies and pertinent laboratory tests were also reviewedat this time in the EMR. The physical examination, as below, was then performed. Indication, assessment and HPI: 58-year-old female presents for EGD to evaluate chronic GERD, atypical GERD, chronic cough, Bejarano's screening Family history of GI malignancy? No PHYSICAL EXAMINATION Mouth and Pharynx : Moist mucus membranes, normal dentition Cardiac: Regular rate, regular rhythm Pulmonary: Clear to auscultation bilaterally, no wheezing Neurological: Alert and oriented x3, no focal deficits noted Abdomen: Abdomen soft, non-tender REVIEW OF SYSTEMS Constitutional: Denies malaise, fevers Cardiovascular: Denies chest pain, palpitations Respiratory: Denies shortness of breath, wheezing Gastrointestinal: Per HPI Genitourinary: Denies dysuria, polyuria Musculoskeletal: Denies joint swelling, joint stiffness Neurological: Denies numbness, tingling Integumentary: Denies rashes, skin lesions Endocrine: Denies fatigue, weight loss Written informed consent obtained from the patient. Risks (including but not limited to perforation, infection, bloating, bleeding, need for emergent surgeryand loss of life), benefits and alternatives explained and questions answered. The patient verbalized understanding. Based on history patient is an appropriate candidate for the procedure. Radhames Brush MD Documented By: Radhames Brush MD 11/07/23850 Signed By: <Electronically signed by Radhames Brush MD> 11/07/23850 [facility] Work Phone: Hospital Discharge instructions Additional Instructions DISCHARGE INSTRUCTIONS FOR UPPER ENDOSCOPY WHAT TO EXPECT: - You may feel full, gassy or cramping after your procedure. In some cases, this may be from a few hours to a day. Walking may help relieve the discomfort. - Your throat may feel sore today from the scope that the doctor passed through your throat to visualize your stomach. Take a throat lozenge or suck on ice to ease the discomfort. - You may notice some streaks of blood in your sputum if the doctor has taken a biopsy. - You should begin to recover from anesthesia within 1 hour of the procedure, however may feel groggy for the next 24 hours. DO's AND DON'Ts: - Call your doctor right away if you have a hard abdomen, severe pain, vomiting or if you cough up large amounts of blood. - Call your doctor if you develop any rashes, hives or difficulty breathing. - If you take 81 mg aspirin for your heart it is safe to resume this medication. - If you take other blood thinner medications your doctor will instruct you when these can safely be resumed. - Do NOT drive for 24 hours. - Do NOT operate machinery such as power tools, lawn mowers, snow blowers, sewing machines, etc. for 24 hours. - Avoid alcoholic beverages and drugs for allergies, nerves, or sleep. - Do NOT stay alone. Do NOT leave your child unattended. - Do NOT make important personal or business decisions or sign any legal documents. - Eat solid foods and drink liquids in smaller amounts than usual until normal appetite returns. If you should experience an upset stomach, liquids high in sugar content (soda, Magdaleno-Aid, non-acid juices) are recommended. - Do NOT smoke. - Do take it easy today. You need not stay in bed, but avoid strenuous activities such as jogging or working out. FOLLOW UP & RECOMMENDATIONS: -The GI office will schedule you a follow-up appointment. -Notify the doctor if you have any problems. -Follow up with PCP. -Office number [phone].[facility] Work Phone: Reason for referral (narrative)* Diagnostic Procedure Only (Routine) - New Request Specialty Diagnoses / Procedures Referred By Deidre nguyễn Referred To Contact [facility] Diagnoses Women's annual routine gynecological examination Encounter for screening breast examination Procedures TARAN SCREENING SCREENING MAMMOGRAPHY BI 2-VIEW BREAST INC Harriet Caldwell APRN.CNM [address] [facility] [address] [facility] [place] [address] Referral ID Status Reason Start Date Expiration Date Visits Requested Visits Authorized [id number] New Request Auto-Generat ed Referral 10/12/2024 11/11/2025 1 [facility] Summary Purpose Family History No Family History Records Found Relationship Condition Age at Onset Recorded Date/T malathi Not Specified Hypertension Unknown Type 2 diabetes mellitus Unknown father Hypertension Unknown family member Family history of other condition Unknow n Advance Directives No Advanced Directives Records Found Advance Directive Response Recorded Date/ Time Advance Directives No August 12:47pm Chief Complaint and Reason for Visit Chief Complaint 2 Month Follow Up/Ge rd Gerd, Cough Gerd, Cough Additional Source Comments INFORMATION SOURCE (unrecogn ized section and content) DATE CREATED AUTHOR 03/13/2018 [facility] DATE CREATED AUTHOR AUTHOR'S ORGANIZ ATION 11/28/2022 [facility] DATE CREATED AUTHOR AUTHOR'S ORGANIZ ATION 11/08/2023 [facility] DATE CREATED AUTHOR AUTHOR'S ORGANIZ ATION 07/29/[address] [facility] EPIC DATE CREATED AUTHOR AUTHOR'S ORGANIZ ATION 08/06/2024 [facility] DATE CREATED AUTHOR AUTHOR'S ORGANIZ ATION 10/13/2024 [facility] REASON FOR VISIT (unrecogniz ed section and content) Reason Comments GERD Reason Comments [facility] Teams (unrecognized sec tion and content) Team Status: Active Member Role Status Dates Nomi Barahona II MD Primary Care Provider Active Team Status: Inactive Member Role Status Dates Pablo Nielsen APRN Attending Provider Active Start: October 01, 2023 End: October 01, 2023 Team Status: Inactive Member Role Status Dates Nomi Barahona II MD Primary Care Provider Active Start: November 07, 2023 End: November 07, 2023 Radhames Brush MD Attending Provider Active S tart: November 07, 2023 End: November 07, 2023 Team Status: Active Member Role Status Dates Nomi Barahona II MD Primary Care Provider Active Start: November 07, 2023 Radhames Brush MD Attending Provider, Other Provider Active Start: November 07, 2023 Ply Splicer Relationship Specialty Start Date End Date Nomi Barahona MD [address] [facility] [address] [place] [address] PCP - General Internal Medicine 02/05/23 Ply Splicer Relationship Specialty Start Date End Date Nomi Barahona MD [address] [facility] [address] [place] [address] PCP - General Internal Medicine 02/05/23 Source Comments (unrecognize d section and content) In the event this informatio n is protected by the Federal Confidentiality of Alcohol and Drug Abuse Patient Records regulations: The Federal rules restrict any use of the information to criminally investigate or prosecute any alcohol or drug abuse patient.[facility] FOR RECORDS PERTAINING TO PATIENTS WHO ARE OR HAVE BEEN ENROLLED IN A CHEMICAL DEPENDENCY/SUBSTANCEABUSE PROGRAM, SOME INFORMATION MAY BE OMITTED. This clinical summary was aggregated from multiple sources. Caution should be exercised in using it in the provision of clinical care. This summary normalizes information from multiple sources, and as a consequence, information in this document may materially change the coding, format and clinical context of patient data. In addition, data may be omitted in some cases. CLINICAL DECISIONS SHOULD BE BASED ON THE PRIMARY CLINICAL RECORDS. [facility]. provides no warranty or guarantee of the accuracy or completeness of information in this document.
== END 2024-11-26 16:39 | disposition home or self-care (01) ==
LOC: MAMMO 16:39
PROVIDERS: PCP Internal Medicine
DX: Z12.31 Encounter for screening mammogram for malignant neoplasm of breast (principal); Z80.0 Family history of malignant neoplasm of digestive organs
CPT/HCPCS: 77063; 77067